=== PATIENT | female | born 1995 | race Two or more races ===

== ENCOUNTER 2024-08-24 16:48 | Emergency (ER) | payer MEDICAID, SELFPAY ==
[2024-08-24 17:41] VITALS: BP 122/84; PULSE 89; RESP 18; TEMP 36.9; O2SAT 99; BMI 39.4
--- NOTE | 2024-08-24 18:04 | EDNOTE_ITS ---
Upper Extremity Injury RME/HPI General Chief Complaint: Extremity Injury, Upper Stated Complaint: Right thumb nail injury Time Seen by Provider: 08/24/24 18:04 Source: patient Arrival date/time: 08/24/24 16:48 patient has a right thumb injury that is the acrylic nail lifted off the nailbed Mode of arrival: ambulatory Limitations: no limitations RME / HPI complaint: injury to: right and finger (Thumb) Onset (ago): hour(s) Other injuries: none Related Data Previous Rx's ?Medication ?Instructions ?Recorded Hydrocodone/Acetaminophen * (NORCO 1 tab PO Q6H PRN PA IN #14 tabs 11/03/14 5/325 *) Allergies Allergy/AdvReac Type Severity Reaction Status Date / Time NKA* Allergy Uncoded 08/24/24 16:51 Review of Systems Constitutional Constitutional: Reports system reviewed and no additional complaints, except as documented Eyes Eyes: Reports system reviewed and no additional complaints, except as documen clau, Denies dry eyes, Denies exophthalmos and Reports floaters Cardiovascular Cardiovascular: Denies chest pain with activity and Denies claudication Past Medical History Social History SMOKING STATUS: Never smoker ED Exam General Limitations: Present no limitations General appearance: Present alert and in no apparent distress Head Head exam: Present atraumatic Eye Eye exam: Present normal appearance, PERRL and EOMI ENT ENT exam: Present normal exam, normal oropharynx and mucous membranes moist Neck Neck exam: Present normal inspection, full ROM and trachea midline Chest Chest inspection: Present normal inspection and symmetric chest wall rise Respiratory Respiratory exam: Present normal lung sounds bilaterally Cardiovascular Cardiovascular exam: Present regular rate, normal rhythm and normal heart sounds Abdominal Exam Abdominal exam: Present soft and normal bowel sounds Extremities Exam Extremities exam: Present normal inspection, full ROM and other (The right thumbnail appears to have been lifted off the base of the nailbed. This is a partial separation. Otherwise there is no apparent bony deformity or ecchymoses present.) Back Exam Back exam: Present normal inspection and full ROM Neurological Exam Neurological exam: Present alert, oriented X3 and CN II-XII intact Psychiatric Psychiatric exam: Present normal affect and normal mood Skin Skin exam: Present warm, dry, intact and normal color Course Course Course Narrative: The acrylic nail was easily lifted and from the nailbed. Patient tolerated the procedure well. Quality Measures none Orders Dressed the wound Vital Signs Vital signs: Vital Signs Temperature 98.4 F 08/24/24 17:41 Pulse Rate 89 08/24/24 17:41 Respiratory Rate 18 08/24/24 17:41 Blood Pressure 122/84 08/24/24 17:41 Pulse Oximetry (%) 99 08/24/24 17:41 Oxygen Delivery Method Room Air 08/24/24 17:41 99% room air Procedures -ED Nail Trephination Time out: Yes Extremity Injury Patient data External records reviewed:: Other (specify) Clinical information provided by:: none Social determinants that could affect healthcare access:: none Patient has the following chronic illnesses:: NA How is presenting disease/condition affected by chronic disease/condition?: no chronic disease Evaluation data The following diagnostics were reviewed and interpreted by me:: other (specify) Lab and/or radiology exams considered but not ordered:: N/A Interpretation Summary: N/A Medications / Prescriptions Medications or Prescriptions considered but not ordered:: N/A Medication administrations:: N/A Consultations Consultation(s) initiated? (list below): No Consultation #1 (Physician, Specialty, Details): N/A Diagnosis Upper Extremity Injury Differential Diagnosis: other (Acrylic nail injury, ) Most likely diagnosis given after review of the tests above:: NA Admission Indicated Admission indicated?: not indicated Admission Request Was there a request for admission?: No Disposition Plan Disposition Plan: Discharge Discharge Attestation Discharge Attestation: The patient and all family members were given an opportunity to ask questions and understood the discharge instructions. Discharge instructions specifically effects, indications for sooner follow up or return to the emergency department, and the expected course of current diagnosis. Patient condition: Stable Discharge Plan Plan Patient Disposition: HOME (Self Care) Discharge Disposition comment: Patient discharged in no apparent distress Patient condition on transfer: Stable Prescriptions/Referrals Prescriptions/Med Rec: No Action Hydrocodone/Acetaminophen * (NORCO 5/325 *) 1 TAB tablet 1 tab PO Q6H PRN (Reason: PAIN) Qty: 14 0RF Referrals: Pam Petit PA-C [Primary Care Provider] - In 1 week Problem List Clinical Impression: Nail avulsion Impression comment: Patient will be discharged in no apparent distress Patient/Caregiver Discharge Instructions Discharge Activity: activity as tolerated Print Language: [place] Stand Alone Forms: Patient Portal Info Letter DEIDRA Supervising Physician DEIDRA Supervising Physician: ronal
== END 2024-08-24 19:17 | disposition home or self-care (01) ==
PROVIDERS: Emergency Provider Emergency Medicine; PCP Physician Assistant Medical
DX: S61.101A Unspecified open wound of right thumb with damage to nail, initial encounter (principal); X58.XXXA Exposure to other specified factors, initial encounter
CPT/HCPCS: 11730; 99283